=== PATIENT | female | born 1960 | race Two or more races ===

== ENCOUNTER 2018-07-18 15:28 | Outpatient (CLI) | payer OTHER | END 2018-07-18 16:05 | disposition home or self-care (01) | LOC: RAD 501 15:28 | DX: M77.01 Medial epicondylitis, right elbow (principal) ==

== ENCOUNTER 2020-08-18 11:26 | Outpatient (CLI) | payer OTHER | END 2020-08-18 22:22 | disposition home or self-care (01) | LOC: PPH VACUNA 11:26 | DX: Z23 Encounter for immunization (principal) ==

== ENCOUNTER 2021-05-17 08:00 | Outpatient (CLI) | payer OTHER | END 2021-05-17 08:30 | disposition home or self-care (01) | LOC: PPH VACUNA 08:00 | PROVIDERS: ATTEND Emergency Medicine Pediatric Emergency Medicine | DX: Z23 Encounter for immunization (principal) ==

== ENCOUNTER 2021-12-15 08:00 | Outpatient (CLI) | payer OTHER | END 2021-12-15 08:30 | disposition home or self-care (01) | LOC: PPH VACUNA 08:00 | PROVIDERS: ATTEND Emergency Medicine Pediatric Emergency Medicine | DX: Z23 Encounter for immunization (principal) ==